=== PATIENT | male | born 1965 | race Caucasian/White ===

== ENCOUNTER 2025-05-10 18:49 | Emergency (ER) | payer OTHER ==
[~2025-05-10] VITALS: Ht 188 cm; Wt 100.0 kg
[2025-05-10 18:52] VITALS: O2SAT 98
[2025-05-10 20:48] VITALS: BP 132/90; PULSE 85; RESP 16; TEMP 36.7; O2SAT 98
[2025-05-11] MEDS ORDERED: NAPR-1176 MT (02:03)
== END 2025-05-10 20:52 | disposition home or self-care (01) ==
LOC: ER 18:49
DX: M25.562 Pain in left knee (principal); F41.9 Anxiety disorder, unspecified; Z88.0 Allergy status to penicillin
CPT/HCPCS: 73562; 99283

== ENCOUNTER 2025-05-10 22:01 | Emergency (ER) | payer OTHER ==
[~2025-05-10] VITALS: Ht 177.8 cm; Wt 100.0 kg
[2025-05-10 22:03] VITALS: O2SAT 98
[2025-05-11 00:50] LABS: BASOPHILS % 0.6 % (0.0-2.0); EOSINOPHILS % 2.3 % (0.0-5.0); HEMATOCRIT. 44.9 % (42.0-52.0); HEMOGLOBIN. 15.1 g/dL (14.0-18.0); LYMPHOCYTES % 21.8 % (20.0-50.0); MEAN PLATELET VOLUME 8.1 fl (7.4-10.4); MONOCYTES % 5.0 % (2.0-8.0); NEUTROPHILS % 70.3 % (40.0-76.0); PLATELET 308 x1000/uL (130-400); RED BLOOD CELL COUNT 4.62 mill/uL (4.7-6.1); RED CELL DISTRIBUTION WIDTH 15.6 % (11.6-14.6)
[2025-05-11 01:05] LABS: CLARITY URINE CLEAR (CLEAR); COLOR URINE DARK YELLOW (YELLOW); GLUCOSE URINE NEGATIVE (NEGATIVE); KETONES URINE 1+ (NEGATIVE); LEUKOCYTE ESTERASE URINE NEGATIVE (NEGATIVE); NITRITE URINE NEGATIVE (NEGATIVE); OCCULT BLOOD URINE NEGATIVE (NEGATIVE); PH URINE 6.5 (4.5-8.0); PROTEIN URINE TRACE (NEGATIVE); SPECIFIC GRAVITY URINE 1.033 (1.005-1.030); UROBILINOGEN URINE 1.0 E.U./dL (0.2-1.0)
[2025-05-11 01:05] LABS: CREATININE 0.9 mg/dL (0.6-1.3); ETHANOL BLOOD < 10 mg/dL (<10); UREA NITROGEN BLOOD 9 mg/dL (9-23)
[2025-05-11 01:15] LABS: *AMPHETAMINES SCREEN URINE NEGATIVE (NEGATIVE); *BARBITURATES SCREEN URINE NEGATIVE (NEGATIVE); *BENZODIAZEPINES SCREEN URINE PRESUMPTIVE POSITIVE (NEGATIVE); *COCAINE SCREEN URINE NEGATIVE (NEGATIVE); CANNABINOID URINE SCREEN NEGATIVE (NEGATIVE); METHADONE URINE SCREEN NEGATIVE (NEGATIVE); OPIATES URINE SCREEN PRESUMPTIVE POSITIVE (NEGATIVE); PHENCYCLIDINE URINE SCREEN NEGATIVE (NEGATIVE)
[2025-05-11] MEDS: IBUPROFEN 600MG TABLET PO ONE (01:15)
[2025-05-11 01:16] LABS: ECSTASY MDMA SCREEN URINE NEGATIVE (NEGATIVE)
[2025-05-11 01:53] LABS: BACTERIA URINE NONE SEEN; RBC URINE 0-2 /hpf (0-2); SQUAMOUS EPITHELIAL CELL URINE NONE SEEN /lpf (RARE/1+); WBC URINE 0-2 /hpf (0-2)
[2025-05-11] MEDS ORDERED: NAPR-1176 MT (02:03)
[2025-05-11 02:29] VITALS: BP 150/90; PULSE 82; RESP 20; TEMP 36.4; O2SAT 98
== END 2025-05-11 02:32 | disposition home or self-care (01) ==
LOC: ER 22:01
DX: S80.00XA Contusion of unspecified knee, initial encounter (principal); F41.9 Anxiety disorder, unspecified; F31.9 Bipolar disorder, unspecified; Z88.0 Allergy status to penicillin; Z79.899 Other long term (current) drug therapy; W01.0XXA Fall on same level from slipping, tripping and stumbling without subsequent striking against object, initial encounter; Y93.89 Activity, other specified; Y92.89 Other specified places as the place of occurrence of the external cause; Y99.8 Other external cause status
CPT/HCPCS: 36415; 80048; 80305; 80320; 81003; 85025; 99283; G0480

== ENCOUNTER 2025-05-11 04:03 | Emergency (ER) | payer OTHER ==
[~2025-05-11] VITALS: Ht 180.3 cm; Wt 87.0 kg
[~2025-05-11 04:03] MED LIST: NAPR-1176 MT
[2025-05-11 04:08] VITALS: O2SAT 100
[2025-05-11 04:11] VITALS: TEMP 36.7; O2SAT 98
[2025-05-11 05:17] VITALS: BP 126/84; PULSE 104; RESP 16
[2025-05-11] MEDS: IBUPROFEN 400MG TABLET PO ONE (05:17)
== END 2025-05-11 05:29 | disposition home or self-care (01) ==
LOC: ER 04:03
DX: S80.00XA Contusion of unspecified knee, initial encounter (principal); Z59.6 Low income; Z88.0 Allergy status to penicillin; W19.XXXA Unspecified fall, initial encounter; Y93.01 Activity, walking, marching and hiking; Y92.89 Other specified places as the place of occurrence of the external cause; Y99.8 Other external cause status
CPT/HCPCS: 99282; 99283